=== PATIENT | female | born 1960 | race Caucasian/White ===

== ENCOUNTER 2016-12-04 11:43 | Emergency (ER) | payer OTHER ==
[~2016-12-04] VITALS: Ht 162.6 cm; Wt 68.0 kg
[~2016-12-04 11:43] MED LIST: HCT25T PO; HYDR-1231 PO; LOVA20TA2 PO; METO-272 PO; OMEP20CA6 PO; ONDA-42 SL; [UNRECOGNIZED DRUG - CODE] PO
--- NOTE | 2016-12-04 13:10 | ED EENT ---
History of Present Illness General Chief Complaint: Eye Problems Stated Complaint: FOREIGN SUBSTANCE IN R EYE Nursing Triage Note: AMB TO ROOM REPORTS WAS PUTTING ON NAILS AND AFTER SHE WAS DONE R EYE STARTED TO BURN. UNSURE IF SHE MAY OF TOUCHED EYE WITH HER HAND. MAY OF GOT SOME GLUE IN EYE. Source: patient, spouse Exam Limitations: no limitations History of Present Illness Time seen by provider: 11:30 Initial Comments 56 yo female patient presents to the ED with c/o possibly getting finger nail glue (Kiss adhesive) in her rt eye. Patient states after she was done putting the nails on, she began having rt eye burning. She has been rubbing the eye. Location Injury Occurred: home Timing/Duration: abrupt Location: eye (R) Prearrival Treatment: flushing eyes, other (Visine) Presenting Symptoms/Injuries: right eye pain Modifying Factors: Worse With Other (worse with rubbing the eye) Allergies and Home Medications Allergies Coded Allergies: No Known Drug Allergies (Unverified , 10/14/10) Home Medications Calcium Carbonate 1,000 Mg Tab.chew 1,000 MG PO (Reported) Hydrochlorothiazide 25 Mg Tab 25 MG PO DAILY (Reported) Hydrocodone Bit/Acetaminophen 1 Tab Tablet #10 1 TAB PO Q6H PRN PRN PAIN Prescribed by: GARRET CASTILLO on 12/18/14 1237 Lovastatin 20 Mg Tablet 1 EACH PO DAILY WITH SUPPER (Reported) Metoprolol Succinate 50 Mg Tab.sr.24h 50 MG PO DAILY (Reported) Ondansetron Hcl 4 Mg Tab #10 4 MG SL Q4H PRN PRN NAUSEA/VOMITING FOR NAUSEA AND VOMITING Prescribed by: GARRET CASTILLO on 12/18/14 1237 Review of Systems Constitutional: no symptoms reported Eyes: See HPI Blurred Vision Foreign Body Sensation Inflammation PainDenies Photophobia Ears: No Symptoms Reported Nose: no symptoms reported Mouth: no symptoms reported Throat: no symptoms reported Skin: no symptoms reported Neurological: No Symptoms Reported All Other Systems Reviewed Negative Unless Noted: Yes (Negative excepted noted.) Past Zvfdgis-Ifsmof-Emuvzo Hx Patient Social History Recent Foreign Travel: No Contact w/Someone Who Travel: No Recent Infectious Disease Expo: No Recent Hopitalizations: No Immunizations Up To Date Date of Influenza Vaccine: Sep 27, 2014 Surgeries HX Surgeries: Yes (OVARIAN CYST, DISCECTOMY) Surgeries: Appendectomy Respiratory Hx Respiratory Disorders: No Cardiovascular Hx Cardiac Disorders: Yes Cardiac Disorders: Hypertension Neurological Hx Neurological Disorders: No Reproductive System Female Reproductive Disorders: Ovarian Cyst Gastrointestinal Hx Gastrointestinal Disorders: Yes Gastrointestinal Disorders: Gastroesophageal Reflux Musculoskeletal Hx Musculoskeletal Disorders: No Endocrine Hx Endocrine Disorders: No Reviewed Nursing Assessment Reviewed/Agree w Nursing PMH: Yes Family Medical History Significant Family History: No Pertinent Family Hx Physical Exam Vital Signs Vital Sign - Last 12Hours 12/04/16 12/04/16 12:23 13:48 Temp 97.3 Pulse 74 Resp 18 Pulse Ox 96 O2 Delivery Room Air General Appearance: WD/WN no apparent distress Eyes: right eye conjunctival inflammation, right eye corneal abrasion, right eye lid inflammation ((consistent with patient rubbing the eye)), left eye normal inspection, bilateral eye EOMI, bilateral eye PERRL Ears: bilateral ear auricle normal Nose: normal inspection Mouth/Throat: normal mouth inspection pharynx normal Neck: supple normal inspection Neurologic/Psychiatric: alert normal mood/affect oriented x 3 Skin: normal color warm/dry Progress/Results/Core Measures Results/Orders My Orders Orders-SARAY LEMA Gentamicin 0.3% Ophth Solution (Garamyci (12/04/16 13:30) Tetracaine 0.5% Ophth Soln (Tetracaine 0 (12/04/16 13:30) Fluorescein Strips (Hhdpx-I-Jwwkau) (12/04/16 13:30) Balanced Salt Irrigation Soln (Bss Irrig (12/04/16 13:30) Rx-Gentamicin Ophth Soln (Rx-Gentamicin (12/04/16 13:33) Medications Given in ED Current Medications Medications Dose Ordered Sig/Edwige Route Start Time Stop Time Status Last Admin Dose Admin Balanced Salt Solution 15 ml ONCE ONCE IR 12/04/16 13:30 12/04/16 13:31 DC 12/04/16 13:42 15 ML Fluorescein Sodium 1 mg ONCE ONCE OU 12/04/16 13:30 12/04/16 13:31 DC 12/04/16 13:42 1 MG Tetracaine HCl 1 ml ONCE ONCE OU 12/04/16 13:30 12/04/16 13:31 DC 12/04/16 13:42 1 ML Vital Signs/I&O Vital Sign - Last 12Hours 12/04/16 12/04/16 12:23 13:48 Temp 97.3 Pulse 74 74 Resp 18 18 B/P Pulse Ox 96 96 O2 Delivery Room Air Departure Communication Progress Notes CND material safety data sheet reviewed for the fingernail glue. Effects of exposure to the eyes include: eye irritation, redness, itching, and watering. Recommendations for eye exposure include flushing the eye with cool water for at least 15 minutes and/or crying. patient states she did irrigate the eye at home. 2 drops of tetracaine ophth solution placed in the rt eye. 2 drops repeated after 10 minutes. fluorescein stain applied. patient noted to have fluorescein uptake medially consistent with corneal abrasion. Plan for discharge to home. Patient given gentamicin ophthalmic solution. Patient instructed to follow-up with the shingle sawyer of her choice as an outpatient for a recheck this week. All return precautions were discussed with the patient as described in the discharge instructions of this report. Patient voices understanding and agrees with the treatment plan. Impression Impression: Primary Impression: Chemical exposure of eye Additional Impression: Corneal abrasion Qualified Code: S05.01XA - Injury of conjunctiva and corneal abrasion without foreign body, right eye, initial encounter Disposition: HOME, SELF-CARE Condition: Improved Departure-Patient Inst. Decision time for Depature: 13:25 Referrals: GILLES FERREIRA OD, SHANE R OD SULLIVAN, WILLIAM J DO (PCP/Family) Primary Care Physician Patient Instructions: Corneal Abrasion (DC), Chemical Eye Injury (DC) Add. Discharge Instructions: All discharge instructions reviewed with patient and/or family. Voiced understanding. Medications as instructed. Tylenol [id number] as directed for pain. Ibuprofen 800 mg by mouth every 8 hours as needed for pain. Cool compresses as needed. Follow-up with the shingle sawyer of your choice for recheck this week, call for appointment time. Return to the emergency department for worsened pain, changes in vision, drainage, fever, headache, dizziness, or any other concerns. Images Eye 1 - Abrasion, Dye uptake (fluorescein) SARAY LEMA Dec 04, 2016 13:10
[2016-12-04] MEDS ORDERED: FLUORESCEIN (FLUOR-I-STRIPS) 1 MG STRP OU ONE (13:30)
[2016-12-04] MEDS ORDERED: BSS 15 ML IR ONE (13:30)
[2016-12-04] MEDS ORDERED: GENTAMICIN 0.3% OPHTH SOLN 5 ML OP SCH (13:30)
[2016-12-04] MEDS ORDERED: TETRACAINE 0.5% OPHTH SOLN 15 ML BTL OU ONE (13:30)
[2016-12-04] MEDS ORDERED: RX-GENTAMICIN SULFATE 0.3% OP 5 ML BTL OD STA (13:33)
[2016-12-04 13:48] VITALS: BP 117/65
== END 2016-12-04 13:41 | disposition home or self-care (01) ==
LOC: EDUNIT# 11:43 → ER 11:44
DX: S05.01XA Injury of conjunctiva and corneal abrasion without foreign body, right eye, initial encounter (principal); Z77.098 Contact with and (suspected) exposure to other hazardous, chiefly nonmedicinal, chemicals; X58.XXXA Exposure to other specified factors, initial encounter; Y92.009 Unspecified place in unspecified non-institutional (private) residence as the place of occurrence of the external cause; Y93.E8 Activity, other personal hygiene; Y99.8 Other external cause status
CPT/HCPCS: 99283

== ENCOUNTER 2021-09-25 14:32 | Emergency (ER) | payer BC ==
[~2021-09-25] VITALS: Ht 162.5 cm; Wt 68.0 kg
[2021-09-25] MEDS ORDERED: ASPIRIN 81 MG CHEW (CHILDREN'S ASA) PO ONE (14:45)
[2021-09-25] MEDS ORDERED: morphine INJ 10 MG/ML 1ML (SYR OR VIAL) IVP STA (14:53)
[2021-09-25 14:55] LABS: BASOPHILS # (AUTO) 0.1 10^3/uL (0.0-0.1); BASOPHILS % (AUTO) 1 % (0-10); EOSINOPHILS # (AUTO) 0.2 10^3/uL (0.0-0.3); EOSINOPHILS % (AUTO) 3 % (0-10); HEMATOCRIT 40 % (35-52); HEMOGLOBIN 13.6 g/dL (11.5-16.0); LYMPHOCYTES # (AUTO) 2.5 X 10^3 (1.0-4.0); LYMPHOCYTES % (AUTO) 33 % (12-44); MEAN CORPUSCULAR HEMOGLOBIN 29 pg (25-34); MEAN CORPUSCULAR HGB CONC 34 g/dL (32-36); MEAN CORPUSCULAR VOLUME 86 fL (80-99); MEAN PLATELET VOLUME 8.5 fL (9.0-12.2); MONOCYTES # (AUTO) 0.5 X 10^3 (0.0-1.0); MONOCYTES % (AUTO) 7 % (0-12); NEUTROPHILS # (AUTO) 4.3 X 10^3 (1.8-7.8); NEUTROPHILS % (AUTO) 57 % (42-75); PLATELET COUNT 288 10^3/uL (130-400); WHITE BLOOD COUNT 7.5 10^3/uL (4.3-11.0)
--- NOTE | 2021-09-25 15:03 | ED Chest Pain ---
General Chief Complaint: Chest Pain Stated Complaint: CHEST/BACK PAIN SOA Nursing Triage Note: AMB TO ROOM WITH . 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 WITH RADIATION TO BACK. HAS BEEN TOLD SHE HAS A POLYP ON HER GALLBALDDER. PAIN BETTER ON ADMIT TO ED. Source: patient Exam Limitations: no limitations History of Present Illness Date Seen by Provider: Sep 25, 2021 Time Seen by Provider: 14:54 Initial Comments This is a 60-year-old female who presented to the ER with complaints of mid ep igastric abdominal pain mid sternal chest pain that radiated into her back and to her right side that started approximately 1 to 2 hours prior to arrival.She does have significant cardiac history with hypertension, hyperlipidemia, type 2 diabetes. She has history of GERD, and "gallbladder polyps". Pain is intermittent and stabbing. Took 2 Tums prior to arrival. States she is unsure if this is helping as the pain will come and go. Upon arrival she has no pain. Reports no recent illness, no fever, chills, has chronic cough which is unchanged from her baseline, increasing shortness of breath over the past couple weeks, no dysuria or hematuria. Allergies and Home Medications Allergies Coded Allergies: No Known Drug Allergies (Unverified , 10/14/10) Patient Home Medication List Calcium Carbonate (Antacid) 1,000 Mg Tab.chew, 1,000 MG PO, (Reported) Entered as Reported by: ALYSIA ALSTON on 12/18/14 1033 Hydrochlorothiazide (Hctz) 25 Mg Tab, 25 MG PO DAILY, (Reported) Entered as Reported by: SE PARIS on 04/28/14 1522 Hydrocodone Bit/Acetaminophen (Hydrocodone-Apap 5-325 Tablet) 1 Tab Tablet, 1 TAB PO Q6H PRN for PAIN Prescribed by: GARRET CASTILLO on 12/18/14 1237 Lovastatin (Lovastatin 20 Mg) 20 Mg Tablet, 1 EACH PO DAILY WITH SUPPER, (Reported) Entered as Reported by: SE PARIS on 04/28/14 1522 Metoprolol Succinate (Metoprolol Succinate) 50 Mg Tab.sr.24h, 50 MG PO DAILY, (Reported) Entered as Reported by: SE PARIS on 04/28/14 1522 Ondansetron Hcl (Zofran Oral Dissolve) 4 Mg Tab, 4 MG SL Q4H PRN for NAUSEA/VOMITING Prescribed by: GARRET CASTILLO on 12/18/14 1237 Past Bthrtpa-Lswypp-Jxfzmp Hx Past Medical History Appendectomy Hypertension Female Reproductive Disorders: Ovarian Cyst Gastroesophageal Reflux Family Medical History No Pertinent Family Hx Physical Exam Vital Signs Vital Signs - First Documented 09/25/21 14:36 Temp 36.0 Pulse 90 Resp 18 B/P (MAP) 135/82 (99) Pulse Ox 98 O2 Delivery Room Air Capillary Refill : Less Than 3 Seconds Height, Weight, BMI Height: 5'4" Weight: 150lbs. oz. 68.265270cg; 25.00 BMI Method:Stated Progress/Results/Core Measures Results/Orders Lab Results Laboratory Tests Test 09/25/21 14:46 Range/Units White Blood Count 7.5 4.3-11.0 10^3/uL Red Blood Count 4.68 3.80-5.11 10^6/uL Hemoglobin 13.6 11.5-16.0 g/dL Hematocrit 40 35-52 % Mean Corpuscular Volume 86 80-99 fL Mean Corpuscular Hemoglobin 29 25-34 pg Mean Corpuscular Hemoglobin Concent 34 32-36 g/dL Red Cell Distribution Width 13.0 10.0-14.5 % Platelet Count 288 130-400 10^3/uL Mean Platelet Volume 8.5 L 9.0-12.2 fL Immature Granulocyte % (Auto) 0 % Neutrophils (%) (Auto) 57 42-75 % Lymphocytes (%) (Auto) 33 12-44 % Monocytes (%) (Auto) 7 0-12 % Eosinophils (%) (Auto) 3 0-10 % Basophils (%) (Auto) 1 0-10 % Neutrophils # (Auto) 4.3 1.8-7.8 X 10^3 Lymphocytes # (Auto) 2.5 1.0-4.0 X 10^3 Monocytes # (Auto) 0.5 0.0-1.0 X 10^3 Eosinophils # (Auto) 0.2 0.0-0.3 10^3/uL Basophils # (Auto) 0.1 0.0-0.1 10^3/uL Immature Granulocyte # (Auto) 0.0 0.0-0.1 10^3/uL Prothrombin Time 13.1 12.2-14.7 SEC INR Comment 1.0 0.8-1.4 Activated Partial Thromboplast Time 30 24-35 SEC D-Dimer 0.77 H 0.00-0.49 UG/ML Sodium Level 134 L 135-145 MMOL/L Potassium Level 3.9 3.6-5.0 MMOL/L Chloride Level 101 98-107 MMOL/L Carbon Dioxide Level 21 21-32 MMOL/L Anion Gap 12 5-14 MMOL/L Blood Urea Nitrogen 11 7-18 MG/DL Creatinine 0.75 0.60-1.30 MG/DL Estimat Glomerular Filtration Rate 79 BUN/Creatinine Ratio 15 Glucose Level 140 H 70-105 MG/DL Calcium Level 9.1 8.5-10.1 MG/DL Corrected Calcium 9.0 8.5-10.1 MG/DL Magnesium Level 1.8 1.6-2.4 MG/DL Total Bilirubin 0.3 0.1-1.0 MG/DL Aspartate Amino Transf (AST/SGOT) 18 5-34 U/L Alanine Aminotransferase (ALT/SGPT) 28 0-55 U/L Alkaline Phosphatase 88 40-136 U/L Myoglobin 43.0 10.0-92.0 NG/ML Troponin I < 0.028 <0.028 NG/ML B-Type Natriuretic Peptide < 10.0 <100.0 PG/ML Total Protein 6.9 6.4-8.2 GM/DL Albumin 4.1 3.2-4.5 GM/DL My Orders Orders - JOSÉ RENAE TUNNEL HEADING INSPECTOR Cbc With Automated Diff (09/25/21 14:36) Magnesium (09/25/21 14:36) Chest 1 View, Ap/Pa Only (09/25/21 14:36) Ekg Tracing (09/25/21 14:36) Comprehensive Metabolic Panel (09/25/21 14:36) Myoglobin Serum (09/25/21 14:36) Protime With Inr (09/25/21 14:36) Partial Thromboplastin Time (09/25/21 14:36) O2 (09/25/21 14:36) Monitor-Rhythm Ecg Trace Only (09/25/21 14:36) Ed Iv/Invasive Line Start (09/25/21 14:36) BNP (09/25/21 14:36) Fibrin Degradation Products (09/25/21 14:36) Troponin I (09/25/21 14:36) Aspirin Chewable Tablet (Baby Aspirin Ch (09/25/21 14:45) Morphine Injection (Morphine Injection (09/25/21 14:53) Dicyclomine Injection (Bentyl Injection) (09/25/21 15:45) Ct Jody Chest/Noang Abd-Pelv W (09/25/21 14:53) Medications Given in ED Current Medications Medications Dose Ordered Sig/Edwige Route Start Time Stop Time Status Last Admin Dose Admin Aspirin 324 mg ONCE ONCE PO 09/25/21 14:45 09/25/21 14:46 DC 09/25/21 15:01 324 MG Dicyclomine HCl 10 mg ONCE ONCE IM 09/25/21 15:45 09/25/21 15:46 DC 09/25/21 15:36 10 MG Iohexol 100 ml ONCE ONCE IV 09/25/21 15:15 09/25/21 15:16 DC 09/25/21 15:54 80 ML Vital Signs/I&O 09/25/21 14:36 Temp 36.0 Pulse 90 Resp 18 B/P (MAP) 135/82 (99) Pulse Ox 98 O2 Delivery Room Air Blood Pressure Mean: 99 Progress Progress Note : Progress Note Labs and imaging reviewed with the patient. She had significant improvement after the dicyclomine injection. This likely represents colic From her gallbladder. Discussed repeating her cardiac enzymes as her initials were negative however her symptom onset was within 1 to 2 hours of the drawl. Patient states that she does not want to wait in the ER for 3-hour repeat on her cardiac markers. Reviewed risk of not repeating labs which included possible Initial ECG Impression Date: Sep 25, 2021 Initial ECG Impression Time: 14:40 Diagnostic Imaging Diagonstic Imaging: Xray Plain Films/CT/US/NM/MRI: chest Comments [facility], [place] NAME: ROMIE HOWARD [facility] REC#: [id number] PT STATUS: REG ER : 1960 PHYSICIAN: JOSÉ RENAE TUNNEL HEADING INSPECTOR ADMIT DATE: 09/25/21/ER Draft Date of Exam:09/25/21 CHEST 1 VIEW, AP/PA ONLY Clinical indication: Patient with chest pain. Exam: Portable chest x-ray upright view. Comparisons: Chest x-ray dated 10/14/2010. Findings: Lungs/pleura: Lungs are clear. There is no pneumothorax. There is no pleural effusion. Mediastinum: Unremarkable. Pulmonary vasculature: Unremarkable. Heart: Unremarkable. Bones/extrathoracic soft tissue: There are degenerative spurs involving the thoracic spine. Impression: There is no radiographic evidence of acute cardiopulmonary process. Dictated on workstation # [id number] Dict: 09/25/21 1600 Trans: 09/25/21 1604 [facility] [id number] Interpreted by: INNA MOORE MD Electronically signed by: Reviewed: Reviewed by Me Departure Impression Primary Impression: Gallbladder colic Disposition: 01 HOME, SELF-CARE Condition: Improved Departure-Patient Inst. Decision time for Depature: 16:45 Referrals: SARA SANTIAGO DO (PCP/Family) Primary Care Physician Patient Instructions: Gallbladder Diet, Gallstones ED Add. Discharge Instructions: Plan: 1. Take Dicyclomine every 6 hours as needed for pain. 2. Avoid fatty, greasy foods as this may worsen your symptoms. 3. Follow up with Dr. Santiago next week to schedule gallbladder ultrasound. 4. Return to ER if you have any chest pain, new, concerning, or worsening symptoms. All discharge instructions reviewed with patient and/or family. Voiced understanding. Scripts Dicyclomine HCl (Dicyclomine HCl) 20 Mg Tablet 20 MG PO Q6H, #30 TAB 0 Refills Prov: JOSÉ RENAE TUNNEL HEADING INSPECTOR 09/25/21 JOSÉ RENAE TUNNEL HEADING INSPECTOR Sep 25, 2021 15:03
[2021-09-25 15:04] LABS: ALBUMIN 4.1 GM/DL (3.2-4.5); POTASSIUM 3.9 MMOL/L (3.6-5.0)
[2021-09-25 15:06] LABS: CALCIUM 9.1 MG/DL (8.5-10.1)
[2021-09-25 15:07] LABS: TOTAL PROTEIN 6.9 GM/DL (6.4-8.2)
[2021-09-25 15:09] LABS: BILIRUBIN,TOTAL 0.3 MG/DL (0.1-1.0)
[2021-09-25 15:10] LABS: CREATININE SERUM 0.75 MG/DL (0.60-1.30); PROTHROMBIN TIME PATIENT 13.1 SEC (12.2-14.7)
[2021-09-25 15:13] LABS: MAGNESIUM 1.8 MG/DL (1.6-2.4)
[2021-09-25] MEDS ORDERED: IOHEXOL 350 MG/ML 100 ML (OMNIPAQUE 350) VIAL IV ONE (15:15)
[2021-09-25] MEDS ORDERED: NS 100 ML (IVPB) BAG IV ONE (15:15)
[2021-09-25] MEDS ORDERED: HOLD METFORMIN - RECEIVED CONTRAST 20 ML VIAL IV SCH (15:15)
[2021-09-25] MEDS ORDERED: DICYCLOMINE 10 MG/ML (BENTYL) 2 ML AMP IM ONE (15:45)
--- NOTE | 2021-09-25 16:04 | Diagnostic Imaging Report ---
Clinical indication: Patient with chest pain. Exam: Portable chest x-ray upright view. Comparisons: Chest x-ray dated 10/14/2010. Findings: Lungs/pleura: Lungs are clear. There is no pneumothorax. There is no pleural effusion. Mediastinum: Unremarkable. Pulmonary vasculature: Unremarkable. Heart: Unremarkable. Bones/extrathoracic soft tissue: There are degenerative spurs involving the thoracic spine. Impression: There is no radiographic evidence of acute cardiopulmonary process. Dictated by: Dictated on workstation # [id number]
--- NOTE | 2021-09-25 16:23 | Diagnostic Imaging Report ---
Clinical indication: Patient with right upper quadrant abdominal pain. Exam: CT angiogram of the chest, abdomen and pelvis performed with 80 cc Omnipaque 350 IV contrast. Coronal and oblique MIP images of the vasculature were created to better evaluate anatomy. Auto Exposure Controls were utilized during the CT exam to meet ALARA standards for radiation dose reduction. Comparison: Chest x-ray dated 12/18/2014. Findings: CTA chest: There is a 7 mm calcified granuloma in the anterior aspect of the right upper lobe. There is a punctate calcification in the medial right lower lung base. Lungs are otherwise clear. There is no pleural effusion or pneumothorax. There is minimal paraseptal cystic changes seen in left lung apex. The pulmonary bronchi are unremarkable. The visualized portion of the thyroid gland is unremarkable. There is no mediastinal or hilar lymphadenopathy. There is no significant axillary lymphadenopathy. The thoracic aorta shows no aneurysmal dilation or dissection. Bilateral pulmonary arteries are patent. There is no evidence of pulmonary embolism. The extrathoracic soft tissue is unremarkable. There are hypertrophic spurs involving the thoracic spine. CT abdomen and pelvis: The abdominal aorta, bilateral common iliac arteries and internal and external bilateral iliac arteries are patent with no aneurysmal dilation or dissection. The celiac artery, SMA and bilateral renal arteries are patent without significant stenosis. There is a 6 mm cyst involving the right lobe of the liver near the dome. Otherwise, liver is unremarkable. The spleen, pancreas, adrenal glands and kidneys are unremarkable. Likely subcentimeter cyst involving the left kidney. Otherwise, both kidneys are unremarkable with no hydronephrosis, stone or enhancing mass. The bladder is partially fluid-filled with no gross abnormality. The uterus is surgically absent. The bilateral adnexal regions are unremarkable. There is no intra-abdominal free air or free fluid. There is diverticulosis involving the sigmoid colon and descending colon with no evidence of diverticulitis. There is no intestinal obstruction. The stomach and small bowel are unremarkable. The appendix is not visualized. There is no inflammation or fluid near the pericecal region. There is no lymphadenopathy. The extra-abdominal and extra-pelvis soft tissue structures are unremarkable. There are degenerative spurs involving lumbar spine facet arthropathy. There are degenerative spurs involving both hips. IMPRESSION: CTA chest: 1: There is no evidence of pulmonary embolism, thoracic aortic aneurysm or dissection. 2: Right lung calcified granuloma. Otherwise, lungs are clear. There is no lymphadenopathy. CT abdomen and pelvis: 1: The appendix is not visualized on this exam. There is no inflammation in the pericecal region. 2: Otherwise, there is no CT evidence of acute abdominal or pelvic process. There is no abdominal aortic aneurysm or dissection. Visualized vascular structures are patent. 3: There is diverticulosis with no CT evidence of diverticulitis. 4: There is diffuse fatty infiltration of the liver. Dictated by: Dictated on workstation # [id number]
[2021-09-25] MEDS ORDERED: DICY20TA10 PO (17:05)
[2021-09-25 17:15] VITALS: BP 146/77
== END 2021-09-25 17:15 | disposition home or self-care (01) ==
LOC: EDUNIT# 14:32 → ER 14:34
DX: K80.20 Calculus of gallbladder without cholecystitis without obstruction (principal); I10 Essential (primary) hypertension; E11.9 Type 2 diabetes mellitus without complications; E78.5 Hyperlipidemia, unspecified; Z79.899 Other long term (current) drug therapy
CPT/HCPCS: 36415; 71045; 71275; 74177; 80053; 83735; 83874; 83880; 84484; 85025; 85379; 85610; 85730; 93005; 93041

== ENCOUNTER → 2021-10-05 | Outpatient (CLI) | payer BC ==
[~2021-10-05] MED LIST changes: +DICY20TA10 PO
--- NOTE | 2021-10-05 09:37 | Diagnostic Imaging Report ---
EXAMINATION: US Abdomen limited. TECHNIQUE: Multiple real-time grayscale images were obtained over the right upper quadrant in various projections. REASON FOR EXAM: Right upper quadrant pain. COMPARISON: 12/18/2014. 09/25/2021. FINDINGS: The liver is normal in size and shape. The liver echogenicity is increased, consistent with hepatic steatosis. There are no focal lesions. No intrahepatic biliary dilatation is present. The common bile duct is not dilated and measures 5 mm. The main portal vein is hepatopedal. No ascites is seen in the upper abdomen. There is no evidence of cholelithiasis, gallbladder wall thickening or pericholecystic fluid. Poorly visualized small echogenic focus is seen within the gallbladder. Sonographic Delatorre's sign is negative. The visualized portion of the head of the pancreas are within normal limits. The body and tail of the pancreas are not well visualized due to overlying bowel gas. The visualized portions of the IVC and aorta appear normal. The right kidney measures approximately 10.3 cm in length and has a normal appearance. IMPRESSION: 1. No cholelithiasis or acute cholecystitis. 2. Hepatic steatosis. No evidence of ascites. 3. Poorly visualized small echogenic focus within the gallbladder lumen. This may represent a previously visualized suspected polyp. Dictated by: Dictated on workstation # [id number]
== END ==
LOC: RAD 08:00
PROVIDERS: ATTEND Nurse Practitioner Family
DX: K76.0 Fatty (change of) liver, not elsewhere classified (principal)
CPT/HCPCS: 76705

== ENCOUNTER → 2021-11-29 | Outpatient (CLI) | payer BC ==
[~2021-11-29] MED LIST changes: +DICY20TA PO; -DICY20TA10 PO; +HYDR-3817 PO; +LISI1TAB48 PO; +METF-397 PO; +OMEP10CA5 PO
--- NOTE | 2021-11-29 11:25 | Diagnostic Imaging Report ---
PROCEDURE: US left lower extremity venous. TECHNIQUE: Multiple Real-time grayscale images were obtained over the left lower extremity in various projections. Additional duplex Doppler and color Doppler images were also obtained. INDICATION: Left leg pain, history of DVT. FINDINGS: There is no evidence of left lower extremity DVT. The left lower extremity deep venous system shows normal compressibility with normal response to augmentation and Valsalva. No fluid collection or mass is detected. IMPRESSION: No evidence of left lower extremity DVT. Dictated by: Dictated on workstation # [id number]
== END ==
LOC: RAD 10:00
PROVIDERS: ATTEND Nurse Practitioner Family
DX: M79.605 Pain in left leg (principal); Z86.718 Personal history of other venous thrombosis and embolism

== ENCOUNTER 2021-11-30 05:33 | Outpatient (CLI) | payer BC ==
[~2021-11-30] VITALS: Ht 162.6 cm; Wt 67.7 kg
[~2021-11-30 05:33] MED LIST changes: -HYDR-3817 PO; -LISI1TAB48 PO; -METF-397 PO; -OMEP10CA5 PO
[2021-11-30] MEDS ORDERED: OMEP10CA5 PO (10:57)
[2021-11-30] MEDS ORDERED: LISI1TAB48 PO (10:57)
[2021-11-30] MEDS ORDERED: METF-397 PO (10:57)
== END 2021-11-30 11:54 | disposition home or self-care (01) ==
LOC: PREOP 05:33
PROVIDERS: ATTEND Surgery
DX: Z01.818 Encounter for other preprocedural examination (principal)

== ENCOUNTER 2021-12-02 10:43 | Day surgery (SDC) | payer BC ==
[~2021-12-02] VITALS: Ht 162 cm; Wt 67.7 kg
[2021-12-02] VITALS (11 sets, daily range): BP systolic 120–159; BP diastolic 62–86
[~2021-12-02 10:43] MED LIST changes: +LISI1TAB48 PO; +METF-397 PO; +OMEP10CA5 PO
[2021-12-02] MEDS ORDERED: HYDR-3817 PO (10:53)
--- NOTE | 2021-12-02 10:54 | Discharge Inst-Surgical ---
D/C Lap Instructions-KIDO Reconcile Patient Problems Problems Reviewed?: Yes New, Converted, or Re-Newed RX: RX on Chart Follow Up Appt in 2 weeks Activity as tolerated No driving for 24 hours No driving while on pain medications Incentive Spirometry use every 2 hours while awake Regular Diet Symptoms to Report: Fever over 101 degree F, Nausea/Vomiting Infection Signs and Symptoms to report: Increased redness, Foul odor of wound, Increased drainage Bathing instructions: May shower Operative Area Clean/Dry; Keep incision clean/dry If any problems/questions: Contact your physician or go to Emergency Room EDWARD LAUGHLIN APRN Dec 02, 2021 10:54
[2021-12-02] MEDS ORDERED: ONDANSETRON 4 MG/2 ML (SDV) Z0FRAN IVP PRN ×2 (11:00→14:30)
[2021-12-02] MEDS ORDERED: HYDROcodone/APAP 5 MG/325 MG (LORTAB) TAB PO ONE (11:00)
[2021-12-02] MEDS ORDERED: ACETAMINOPHEN 325 MG TABLET PO PRN (11:00)
[2021-12-02] MEDS ORDERED: morphine INJ 10 MG/ML 1ML (SYR OR VIAL) IVP PRN (11:00)
[2021-12-02] MEDS ORDERED: ceFAZolin INJECTION 1,000 MG ONE (11:15)
[2021-12-02] MEDS: LACTATED RINGERS 1,000 ML IV PRN ×2 (11:23→14:18)
[2021-12-02] MEDS ORDERED: ceFAZolin INJECTION 1,000 MG VIAL IV ONE (11:30)
--- NOTE | 2021-12-02 11:39 | Progress Note-Pre Operative ---
Pre-Operative Progress Note H&P Reviewed The H&P was reviewed, patient examined and no changes noted. Date Seen by Provider: Dec 02, 2021 Time Seen by Provider: 11:00 Date H&P Reviewed: Dec 02, 2021 Time H&P Reviewed: 10:55 Pre-Operative Diagnosis: Symptomatic gallbladder polyp EDWARD LAUGHLIN APRN Dec 02, 2021 11:39
[2021-12-02] MEDS ORDERED: LIDOCAINE/EPI 1%-1:200,000 (XYLOCAINE) 30 ML VIAL ONE (11:43)
[2021-12-02] MEDS ORDERED: LIDOCAINE PF 2% 5 ML (XYLOCAINE) VIAL ONE (12:27)
[2021-12-02] MEDS ORDERED: ROCURONIUM 10 MG/ML 5 ML SYRINGE IV ONE (12:27)
[2021-12-02] MEDS ORDERED: NEOSTIGMINE 3 MG/3 ML VIAL ONE (12:27)
[2021-12-02] MEDS ORDERED: fentaNYL INJ 100 MCG/2 ML AMP ONE (12:27)
[2021-12-02] MEDS ORDERED: GLYCOPYRROLATE 0.2 MG/ML (ROBINUL) 2 ML VIAL ONE (12:27)
[2021-12-02] MEDS ORDERED: ONDANSETRON 4 MG/2 ML (SDV) Z0FRAN ONE (12:27)
[2021-12-02] MEDS ORDERED: MIDAZOLAM 2 MG/2 ML (VERSED) VIAL ONE (12:27)
[2021-12-02] MEDS ORDERED: proPOfol 200 MG/20 ML (DIPRIVAN) VIAL IV ONE (12:27)
[2021-12-02] MEDS ORDERED: ONDANSETRON 4 MG/2 ML (SDV) Z0FRAN IV ONE (13:15)
[2021-12-02] MEDS ORDERED: FAMOTIDINE 20MG/2ML IV (PEPCID) IV ONE (13:15)
[2021-12-02] MEDS ORDERED: KETOROLAC 30 MG/ML VIAL ONE (14:15)
[2021-12-02] MEDS ORDERED: SEVOFLURANE (ULTANE) 15 ML INHAL SOLN ONE (14:17)
--- NOTE | 2021-12-02 14:20 | Progress Note-Post Operative ---
Post-Operative Progess Note Surgeon (s)/Groutman (s) Surgeon ERIN PATEL MD Groutman: binh rogers CONTRACT MANAGEMENT SPECIALIST Pre-Operative Diagnosis Symptomatic gallbladder polyp Post-Operative Diagnosis chronic calculous cholecystitis. Procedure & Operative Findings Date of Procedure 12/02/21 Procedure Performed/Findings laparoscopic cholecystectomy Anesthesia Type get Estimated Blood Loss Estimated blood loss (mL): minimal Specimens/Packing Specimens Removed gallbladder ERIN PATEL MD Dec 02, 2021 14:20
[2021-12-02] MEDS ORDERED: HYDROmorphone 2 MG/ML VIAL (DILAUDID) IV ONE (14:30)
--- NOTE | 2021-12-02 14:40 | Anesthesia-General Post-Op ---
General Patient Condition Mental Status/LOC: Same as Preop Cardiovascular: Satisfactory Nausea/Vomiting: Absent Respiratory: Satisfactory Pain: Controlled Complications: Absent Post Op Complications Complications None Follow Up Care/Instructions Patient Instructions None needed. Anesthesia/Patient Condition Patient Condition Patient is doing well, no complaints, stable vital signs, no apparent adverse anesthesia problems. No complications reported per nursing. D/C home per [facility] Criteria: Yes CHRISTINE MARINO CRNA Dec 02, 2021 14:40
[2021-12-02] MEDS ORDERED: HYDROmorphone 2 MG/ML VIAL (DILAUDID) ONE (14:50)
[2021-12-02] MEDS ORDERED: HYDROcodone/APAP 5 MG/325 MG (LORTAB) TAB ONE (15:20)
--- NOTE | 2021-12-14 18:04 | OPERATIVE REPORT ---
DATE OF SERVICE: 12/02/2021 ATTENDING BUTTON DECORATING MACHINE OPERATOR: Shani Santiago DNP. PREOPERATIVE DIAGNOSIS: Symptomatic chronic calculous cholecystitis. POSTOPERATIVE DIAGNOSIS: Symptomatic chronic calculous cholecystitis. PROCEDURE: Laparoscopic cholecystectomy. SURGEON: Erin Patel MD. DOG BEAUTICIAN: Tray Hicks APRN. ANESTHESIA: General endotracheal. ESTIMATED BLOOD LOSS: Minimal. FINDINGS: Same as postoperative diagnoses. DISPOSITION: The patient tolerated the procedure well. INDICATIONS: The patient is a 61-year-old female who has had issues with epigastric pain as well as a right upper abdominal quadrant pain. She states that she has had this issue on a mild or more intermittent basis for the past 5 years and was found to have a gallbladder polyp on radiologic workup. She continued with medical management; however, she had worsening symptoms including the pain as well as abdominal distention usually after eating meals. DESCRIPTION OF PROCEDURE: The patient was brought to the operating room, laid supine on the table. After adequate IV pain and sedative medications and general endotracheal intubation, the abdomen was prepped and draped in standard surgical fashion. A 0.5% Marcaine with epinephrine was used to anesthetize overlying skin in the left upper abdominal quadrant and a transverse skin incision made using a 15 blade. An 0 silk suture was applied to the medial aspect incision for retraction and a Veress needle inserted with a low opening pressure of 0 mmHg and the abdomen was then insufflated to 15 mmHg pressure. The Veress needle removed and a 5 mm XL trocar placed followed by a 5 mm 45-degree angle laparoscope visualizing the peritoneal cavity. A 4-quadrant abdominal exploration was performed. There was a slightly distended gallbladder, no gallbladder wall thickening. Under direct visualization, we then proceeded to place a supraumbilical 10 mm port after the skin and peritoneal lining were anesthetized using 0.5% Marcaine with epinephrine and a transverse skin incision made using a 15 blade. In a similar fashion, a right upper abdominal quadrant 5 mm port was placed. The patient was then placed in reverse Trendelenburg position as well as plane right side up, left side down. The fundus of the gallbladder was then retracted anteriorly and superiorly. The hepatoduodenal ligament was then dissected using a blunt dissection as well as electrocautery on hook instrument as well as a [place] dissector. The entire critical view of safety was identified including the triangle of Calot as well as the cystic duct and artery as the only two structures going into the gallbladder as well as the cystic plate behind the proximal gallbladder. A timeout was then taken and the cystic duct and artery were then clipped proximally, distally and cut with EndoShears. The gallbladder was then dissected off the liver bed using electrocautery and hook instrument with visualization of good hemostasis as well as no leaking ducts of Luschka. The gallbladder was removed through the 10 mm port site using an EndoCatch bag. The 10 mm port site fascia and peritoneum were then closed under direct visualization using a Delon-Brandon device and 0 Vicryl suture. The abdomen was then desufflated and remaining ports removed. All skin incisions were closed using 4-0 Monocryl running subcuticular sutures. Wounds were then cleaned and covered with Dermabond. The patient tolerated the procedure well. We will start IV normal pain medication as well as a clear liquid diet. When she is tolerating clears, has good pain control with oral pain medications, ambulating well, she may be discharged home where she will be instructed to do no heavy lifting or exertion for the next two weeks. Job ID: [id number] DocumentID: [id number] Dictated Date: 12/14/2021 12:26:25 Resident Physician In Radiology Date: 12/14/2021 18:03:30 Dictated By: ERIN PATEL MD
== END 2021-12-02 16:30 ==
LOC: SDC 10:43
PROVIDERS: ATTEND Surgery
DX: K80.10 Calculus of gallbladder with chronic cholecystitis without obstruction (principal); K21.9 Gastro-esophageal reflux disease without esophagitis; E11.40 Type 2 diabetes mellitus with diabetic neuropathy, unspecified; F17.210 Nicotine dependence, cigarettes, uncomplicated; I10 Essential (primary) hypertension; Z79.899 Other long term (current) drug therapy; Z79.84 Long term (current) use of oral hypoglycemic drugs
CPT/HCPCS: 82947; 87081; 88304

== ENCOUNTER 2022-11-25 13:12 | Emergency (ER) | payer BC ==
[~2022-11-25] VITALS: Ht 162.6 cm; Wt 68.9 kg
[~2022-11-25 13:12] MED LIST changes: +HYDR-3817 PO
[2022-11-25 13:34] LABS: CLARITY,URINE CLEAR; COLOR,URINE YELLOW; GLUCOSE, URINE (UA) NEGATIVE (NEGATIVE); KETONES,URINE NEGATIVE (NEGATIVE); NITRITE,URINE NEGATIVE (NEGATIVE); PROTEIN,URINE NEGATIVE (NEGATIVE)
[2022-11-25 13:35] LABS: BILIRUBIN,URINE NEGATIVE (NEGATIVE); LEUKOCYTE ESTERASE ,URINE NEGATIVE (NEGATIVE)
[2022-11-25 13:51] LABS: BACTERIA,URINE NEGATIVE /HPF; SQUAMOUS EPITHELIAL CELL,UR 0-2 /HPF
[2022-11-25] MEDS ORDERED: CYCLOBENZAPRINE 10 MG (FLEXERIL) TAB PO STA (14:07)
--- NOTE | 2022-11-25 14:14 | ED Back Pain ---
General Chief Complaint: Back Problems Stated Complaint: RIGHT SIDE BACK PAIN Nursing Triage Note: PT AMBULATE TO TRIAGE WITH C/O RIGHT SIDE BACK PAIN X2 HOURS. PT REPORTS SHE HAS HAD THIS PAIN BEFORE BUT IT WHEN AWAY. PT DENIES TAKING ANYTHING FOR PAIN. PT DENIES DIFFICULTY/PAIN WITH URINATION. History of Present Illness Date Seen by Provider: Nov 25, 2022 Time Seen by Provider: 13:25 Initial Comments 62-year-old female presents for right-sided low back pain. She has had this in the past and it normally improves with minimal treatment. She has not taken anything for pain. She denies any nausea, vomiting, diarrhea. Location: Paraspinous Muscles (right) Timing/Duration: 4-6 Hours Severity: Moderate Pain/Injury Location: Back Associated Symptoms: muscle spasms; No weakness, No numbness in legs/feet, No tingling in legs/feet, No sensory/motor loss; lower back pain; No loss of bladder control, No loss of bowel control Allergies and Home Medications Allergies Coded Allergies: Hzmopcf-FUK-FlX Reductase Inhibitor (Verified Allergy, Unknown, RASH, 12/02/21) Patient Home Medication List Home Medication List Reviewed: Yes Calcium Carbonate (Antacid) 1,000 Mg Tab.chew, 1,000 MG PO, (Reported) Entered as Reported by: ALYSIA ALSTON on 12/18/14 1033 Cyclobenzaprine HCl (Cyclobenzaprine HCl) 10 Mg Tablet, 10 MG PO Q8H PRN for SPASMS Prescribed by: VIDYA MARISCAL on 11/25/22 1551 Dicyclomine HCl (Dicyclomine HCl) 20 Mg Tablet, 20 MG PO Q6H Prescribed by: JOSÉ RENAE on 09/25/21 1705 Hydrocodone/Acetaminophen (Hydrocodone-Acetamin 7.5-325) 1 Each Tablet, 1 EACH PO Q4H PRN for PAIN-BREAKTHROUGH Prescribed by: EDWARD LAUGHLIN on 12/02/21 1053 Lisinopril/Hydrochlorothiazide (Lisinopril-Hctz 20-25 mg Tab) 1 Each Tablet, 1 EACH PO DAILY, (Reported) Entered as Reported by: YEMI GARCES on 11/30/21 1057 Metformin HCl (Metformin HCl) 500 Mg Tablet, 500 MG PO DAILY, (Reported) Entered as Reported by: YEMI GARCES on 11/30/21 1057 Metoprolol Succinate (Metoprolol Succinate) 50 Mg Tab.sr.24h, 50 MG PO HS, (Reported) Entered as Reported by: SE [place] on 04/28/14 1522 Omeprazole (Omeprazole) Unknown Strength Capsule.dr, Unknown Dose PO, (Reported) Entered as Reported by: YMEI GARCES on 11/30/21 1057 Tramadol HCl (Tramadol HCl) 50 Mg Tablet, 50 MG PO Q6H PRN for PAIN Prescribed by: VIDYA MARISCAL on 11/25/22 1552 Review of Systems Constitutional: no symptoms reported, see HPI Musculoskeletal: see HPI, back pain, muscle pain, muscle weakness All Other Systems Reviewed Negative Unless Noted: Yes Past Gbowimh-Bunuri-Eieaaf Hx Patient Social History Tobacco Use?: Yes Smoking Status: Heavy Tobacco Smoker Smokeless Tobacco Frequency: Never a User Use of E-Cig and/or Vaping dev: No Use of E-Cig and/or Vaping Rajinder: Never a User Substance use?: No Alcohol Use?: No Pt feels they are or have been: No Immunizations Up To Date First/Initial COVID19 Vaccinat: JANUARY 2021 Second COVID19 Vaccination Elbert: FEBRUARY 2021 Seasonal Allergies Seasonal Allergies: Yes Past Medical History Surgeries: Yes (OVARIAN CYST, DISCECTOMY) Appendectomy Respiratory: No Currently Using CPAP: No Currently Using BIPAP: No Cardiac: Yes High Cholesterol, Hypertension Neurological: No Female Reproductive Disorders: Ovarian Cyst Genitourinary: No Gastrointestinal: Yes Gastroesophageal Reflux, Gall Bladder Disease Musculoskeletal: No Chronic Back Pain Endocrine: No Diabetes, Non-Insulin dep HEENT: Yes (GLASSES) Cancer: No Psychosocial: No Integumentary: No Blood Disorders: No Family Medical History Reviewed Nursing Family Hx No Pertinent Family Hx Physical Exam Vital Signs Vital Signs - First Documented 11/25/22 11/25/22 13:19 14:18 Temp 36.5 Pulse 89 Resp 18 B/P (MAP) 152/74 (100) Pulse Ox 98 O2 Delivery Room Air Capillary Refill : Less Than 3 Seconds Height, Weight, BMI Height: 5'4" Weight: 150lbs. oz. 68.303440fb; 26.00 BMI Method:Stated General Appearance: WD/WN, Mild Distress (secondary to pain) Neck: Full Range of Motion, Normal Inspection, Non Tender, Supple Cardiovascular: Regular Rate, Rhythm, No Edema, No Murmur, Normal Peripheral Pulses Respiratory: Chest Non Tender, Lungs Clear, Normal Breath Sounds Gastrointestinal: Normal Bowel Sounds, Non Tender, Soft Back: Normal Inspection, No Vertebral Tenderness, Decreased Range of Motion (secondary to pain), Muscle Spasm (right upper lumbar); No Vertebral Tenderness; Other (Steady gait, can toe walk and heel walk. Power V/V L4-S1) Extremity: Normal Capillary Refill, Normal Inspection, Normal Range of Motion, Non Tender, No Calf Tenderness Neurologic/Psychiatric: Alert, Oriented x3, No Motor/Sensory Deficits, Normal Mood/Affect Skin: Normal Color, Warm/Dry Progress/Results/Core Measures Results/Orders Lab Results Laboratory Tests Test 11/25/22 13:26 Range/Units Urine Color YELLOW Urine Clarity CLEAR Urine pH 6.0 5-9 Urine Specific [place] 1.010 L 1.016-1.022 Urine Protein NEGATIVE NEGATIVE Urine Glucose (UA) NEGATIVE NEGATIVE Urine Ketones NEGATIVE NEGATIVE Urine Nitrite NEGATIVE NEGATIVE Urine Bilirubin NEGATIVE NEGATIVE Urine Urobilinogen 0.2 < = 1.0 MG/DL Urine Leukocyte Esterase NEGATIVE NEGATIVE Urine RBC (Auto) NEGATIVE NEGATIVE Urine RBC NONE /HPF Urine WBC NONE /HPF Urine Squamous Epithelial Cells 0-2 /HPF Urine Crystals NONE /LPF Urine Bacteria NEGATIVE /HPF Urine Casts NONE /LPF Urine Mucus NEGATIVE /LPF Urine Culture Indicated NO My Orders Orders - VIDYA MARISCAL Ua Culture If Indicated (11/25/22 13:20) Cyclobenzaprine Tablet (Flexeril Tablet) (11/25/22 14:07) Tramadol Tablet (Ultram Tablet) (11/25/22 14:07) Lumbar Spine - 2-3 Views (11/25/22 14:07) Vital Signs/I&O 11/25/22 11/25/22 11/25/22 13:19 14:18 15:54 Temp 36.5 Pulse 89 81 80 Resp 18 18 18 B/P (MAP) 152/74 (100) 145/87 (106) 138/87 Pulse Ox 98 94 O2 Delivery Room Air Room Air Room Air Blood Pressure Mean: 100 Progress Progress Note : Time: 13:25 Progress Note patient assessed, will obtain x-ray, Flexerile and Tramadol. 1420 No acute findings on x-ray. Patient reports minimal improvement but declined CT. 1500 d/c instructions and return precautions reviewed. All questions answered. Diagnostic Imaging Diagonstic Imaging: Xray Plain Films/CT/US/NM/MRI: other (l spine) Comments NAME: ROM[facility] REC#: [id number] PT STATUS: REG ER : 1960 PHYSICIAN: VIDYA MARISCAL ADMIT DATE: 11/25/22/ER Draft Date of Exam:11/25/22 LUMBAR SPINE - 2-3 VIEWS INDICATION: low back pain TECHNIQUE: AP, Lateral and Spot imaging of the lumbar spine CORRELATION STUDY: None FINDINGS: Mild straightening of normal lumbar lordosis. Lumbar vertebral body heights are maintained. Endplate lipping throughout the lumbar spine. Facet arthropathy L5-S1, L4-L5 and L3-L4 levels. More prominent disc space narrowing L5, S1, L4, L5 levels. There is a prominent vascular calcification abdominal aorta. SI joints appear unremarkable. IMPRESSION: No radiographic evidence for acute bony abnormality of the lumbar spine. Advanced lower lumbar spine degenerative change. Dictated on workstation # [id number] Dict: 11/25/22 1454 Trans: 11/25/22 1459 CV [id number] Interpreted by: DWAYNE FOX DO Electronically signed by: Reviewed: Reviewed by Me Departure Impression Primary Impression: Strain of lumbar paraspinal muscle Qualified Codes: S39.012A - Strain of muscle, fascia and tendon of lower back, initial encounter Disposition: 01 HOME, SELF-CARE Condition: Stable Departure-Patient Inst. Decision time for Depature: 15:00 Referrals: SARA CROFT DO (PCP/Family) Primary Care Physician Patient Instructions: Low Back Pain (DC), Muscle Strain (DC) Add. Discharge Instructions: Alternate heat and ice to your area of discomfort. Use muscle relaxant and pain medication as prescribed. Follow-up with your primary care provider if symptoms are not improving or worsen. Return to the emergency department for new, urgent healthcare needs. All discharge instructions reviewed with patient and/or family. Voiced understanding. Scripts Tramadol HCl (Tramadol HCl) 50 Mg Tablet 50 MG PO Q6H PRN for PAIN, #20 TAB 0 Refills Prov: VIDYA MARISCAL 11/25/22 Cyclobenzaprine HCl (Cyclobenzaprine HCl) 10 Mg Tablet 10 MG PO Q8H PRN for SPASMS, #20 TAB 0 Refills Prov: VIDYA MARISCAL 11/25/22 VIDYA MARISCAL Nov 25, 2022 14:14
--- NOTE | 2022-11-25 15:00 | Diagnostic Imaging Report ---
INDICATION: low back pain TECHNIQUE: AP, Lateral and Spot imaging of the lumbar spine CORRELATION STUDY: None FINDINGS: Mild straightening of normal lumbar lordosis. Lumbar vertebral body heights are maintained. Endplate lipping throughout the lumbar spine. Facet arthropathy L5-S1, L4-L5 and L3-L4 levels. More prominent disc space narrowing L5, S1, L4, L5 levels. There is a prominent vascular calcification abdominal aorta. SI joints appear unremarkable. IMPRESSION: No radiographic evidence for acute bony abnormality of the lumbar spine. Advanced lower lumbar spine degenerative change. Dictated by: Dictated on workstation # [id number]
[2022-11-25] MEDS ORDERED: CYCL10TA25 PO (15:51)
[2022-11-25] MEDS ORDERED: TRM50T PO (15:51)
[2022-11-25 15:54] VITALS: BP 138/87
== END 2022-11-25 15:54 | disposition home or self-care (01) ==
LOC: EDUNIT# 13:12 → ER 13:13
DX: S39.012A Strain of muscle, fascia and tendon of lower back, initial encounter (principal); F17.200 Nicotine dependence, unspecified, uncomplicated; X58.XXXA Exposure to other specified factors, initial encounter
CPT/HCPCS: 72100; 81000

== ENCOUNTER → 2023-08-11 | Outpatient (CLI) | payer BC ==
[~2023-08-11] MED LIST changes: +CATHETER FLUSH 10 ML SYR IVP PRN; +CYCL10TA25 PO; +TRM50T PO
[2023-08-11 08:13] VITALS: BP 131/75
--- NOTE | 2023-08-11 12:40 | Cardiology Stress Test Report ---
Stress Test Report Date of Procedure/Referring: Date of Procedure: Aug 11, 2023 PCP Manjeet Santiago DO Admitting Physician Admitting Physician: Attending Physician: Manjeet Santiago DO Indications: Chest pain Baseline Heart Rate: 71 Baseline Blood Pressure: Blood Pressure Systolic: 131 Blood Pressure Diastolic: 75 Vital Signs Date Time Temp Pulse Resp B/P (MAP) Pulse Ox O2 Delivery O2 Flow Rate FiO2 08/11/23 08:13 75 131/75 (93) Baseline Vital Signs Vital Signs Date Time Temp Pulse Resp B/P (MAP) Pulse Ox O2 Delivery O2 Flow Rate FiO2 08/11/23 08:13 75 131/75 (93) Baseline EKG: Baseline EKG: NSR, RSR prime in V1, minimal ST depressions in diffuse leads Summary: After explaining the procedure and details to the patient, she signed the consent and was brought to the stress nuclear laboratory. Patient exercised on standard Peter protocol, EKG, heart rate and blood pressure were monitored continuously, resting and stress doses of radio tracer were injected, imaging was acquired and reviewed in the short axis, horizontal long axis and vertical long axis views Patient was able to exercise for a total of [ ] minutes on Peter protocol, METs [ ] Maximum heart rate [ ] Maximum blood pressure [ ] Stress EKG, Minimal nondiagnostic changes Recovery EKG, Return to baseline MARINA VAZQUEZ MD Aug 11, 2023 12:40
--- NOTE | 2023-08-11 12:46 | Cardiology Stress Test Report ---
Stress Test Report Date of Procedure/Referring: Date of Procedure: Aug 11, 2023 PCP Manjeet Santiago DO Admitting Physician Admitting Physician: Attending Physician: Manjeet Santiago DO Indications: Chest pain Baseline Heart Rate: 71 Baseline Blood Pressure: Blood Pressure Systolic: 131 Blood Pressure Diastolic: 75 Vital Signs Date Time Temp Pulse Resp B/P (MAP) Pulse Ox O2 Delivery O2 Flow Rate FiO2 08/11/23 08:13 75 131/75 (93) Baseline Vital Signs Vital Signs Date Time Temp Pulse Resp B/P (MAP) Pulse Ox O2 Delivery O2 Flow Rate FiO2 08/11/23 08:13 75 131/75 (93) Baseline EKG: Baseline EKG: NSR, RSR prime in V1, minimal ST depressions and diffusely Summary: After explaining the procedure and details to the patient, she signed the consent and was brought to the stress nuclear laboratory. Patient exercised on standard Peter protocol, EKG, heart rate and blood pressure were monitored continuously, resting and stress doses of radio tracer were injected, imaging was acquired and reviewed in the short axis, horizontal long axis and vertical long axis views Patient was able to exercise for a total of [ ] minutes on Peter protocol, METs [ ] Maximum heart rate [ ] Maximum blood pressure [ ] Stress EKG, Minimal nondiagnostic changes Recovery EKG, Return to baseline TID: 1.08 SSS: 0 SDS: 0 EF: 74 Conclusion: 1. Exercise Myoview performed. Peter protocol. 2. Patient achieved 9.1 METS (average workload). She achieved that 91% of max protected heart rate. Hypertensive response to exercise up to 204/69. 3. Baseline EKG demonstrates normal sinus rhythm, RSR prime in V1, less than [address] depressions in diffuse leads. 4. Stress EKG demonstrates [address] depressions in diffuse leads, concerning for ischemia. 5. Normal left ventricular ejection fraction of 74%. Transischemic dilatation ratio of 1.08 (nonsignificant). 6. No myocardial ischemia is noted by nuclear scanning. 7. Positive stress test study by EKG (although baseline minimal ST depressions may have biased to study). Negative stress test study by imaging. 8. Overall, negative stress test study. No evidence of myocardial ischemia. MAIRNA VAZQUEZ MD Aug 11, 2023 12:46
== END ==
LOC: CARD 06:32
PROVIDERS: ATTEND Internal Medicine
DX: R07.9 Chest pain, unspecified (principal)
CPT/HCPCS: 78452; 93017; A9502

== ENCOUNTER 2023-10-31 07:18 | Emergency (ER) | payer BC ==
[~2023-10-31] VITALS: Ht 162.5 cm; Wt 68.0 kg
[~2023-10-31 07:18] MED LIST changes: -CATHETER FLUSH 10 ML SYR IVP PRN
[2023-10-31] MEDS ORDERED: ONDANSETRON 4 MG ORAL DISSOLVE TABLET SL STA (08:48)
[2023-10-31] MEDS ORDERED: KETOROLAC INJ 30 MG/ML VIAL IM STA (08:48)
[2023-10-31] MEDS ORDERED: HYDROcodone/ACETAMINOPHEN 5 MG/325 MG TABLET PO ONE (09:00)
[2023-10-31 09:24] LABS: BILIRUBIN,URINE NEGATIVE (NEGATIVE); CLARITY,URINE CLEAR; COLOR,URINE YELLOW; GLUCOSE, URINE (UA) NEGATIVE (NEGATIVE); KETONES,URINE NEGATIVE (NEGATIVE); LEUKOCYTE ESTERASE ,URINE NEGATIVE (NEGATIVE); NITRITE,URINE NEGATIVE (NEGATIVE); PH,URINE 6.2 (5-9); PROTEIN,URINE NEGATIVE (NEGATIVE)
[2023-10-31 09:25] LABS: BACTERIA,URINE NEGATIVE /HPF
--- NOTE | 2023-10-31 09:28 | Diagnostic Imaging Report ---
PROCEDURE: CT lumbar spine without contrast. TECHNIQUE: Multiple contiguous axial images were obtained through the lumbar spine without the use of intravenous contrast. Sagittal and coronal reformations were then performed. Auto Exposure Controls were utilized during the CT exam to meet ALARA standards for radiation dose reduction. INDICATION: Low back pain, right hip pain. COMPARISON: No priors. FINDINGS: Incidentally noted are benign fat-containing angiomyolipomas in the left kidney. The largest at its upper pole measures 1 cm without hemorrhage. No opaque urinary tract stone or hydronephrosis. The atherosclerotic aortoiliac vessels are nonaneurysmal. There is fatty infiltration of the partially visualized liver which is likely at least mildly enlarged. There are clips at the gallbladder fossa. No intra or extraperitoneal hemorrhage is visible. The lumbar statures are normal and their alignment anatomic. 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 This results in a chronic severe canal stenosis, greatest at the L5 superior endplate level where there is also moderate to severe bilateral calcified stenoses of the lateral recesses. At L4-L5, there is mild to moderate bony biforaminal stenosis. At the L5-S1 level, moderate to severe left and moderate right bony foraminal stenoses are present. No acute or chronic fracture is found. At the remaining levels, no significant stenosis. No acute appearing abnormality. IMPRESSION: 1. Chronic stenoses at L4-L5 and L5-S1 on a calcified basis. No fracture or malalignment. No acute lumbar pathology. 2. 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 Dictated by: Dictated on workstation # [id number]
--- NOTE | 2023-10-31 09:54 | ED Back Pain ---
General Chief Complaint: Back Problems Stated Complaint: LOWER BACK PAIN Nursing Triage Note: PT TO RM 7 BY WC WITH COMPLAINT OF LOW BACK PAIN. STATES STARTED MONDAY. HAS BEEN TO CHIROPRACTPR WITHOUT RELIEF. Source of Information: Patient Exam Limitations: No Limitations History of Present Illness Date Seen by Provider: Oct 31, 2023 Time Seen by Provider: 08:19 Initial Comments Here with complaint of low back pain that started a few days ago after she was sitting on the floor wrapping presents. She went to the chiropractor on Monday and that did help. She has had chronic low back pain due to degeneration and disc problems especially in the area of L4-L5 and L5-S1. No recent trauma. She does have pain that radiates to the right groin and occasionally down to the right foot. She has had sciatica symptoms before. Denies bowel or bladder incontinence or weakness. States the pain just was worse this morning. She has been using Salonpas with lidocaine patches as well as prescribed naproxen and that has helped some. Denies fever or chills. Location: Lumbar Spine, Paraspinous Muscles Timing/Duration: 3-4 Days, Getting Worse Severity: Moderate Associated Symptoms: muscle spasms; No fever, No weakness, No numbness in legs/feet, No tingling in legs/feet; lower back pain; No loss of bladder control, No loss of bowel control Allergies and Home Medications Allergies Coded Allergies: Aowmamm-GVF-XzL Reductase Inhibitor (Verified Allergy, Unknown, RASH, 12/02/21) Patient Home Medication List Home Medication List Reviewed: Yes Calcium Carbonate (Antacid) 1,000 Mg Tab.chew, 1,000 MG PO, (Reported) Entered as Reported by: ALYSIA ALSTON on 12/18/14 1033 Cyclobenzaprine HCl (Cyclobenzaprine HCl) 10 Mg Tablet, 10 MG PO Q8H PRN for SPASMS Prescribed by: VIDYA MARISCAL on 11/25/22 1551 Dicyclomine HCl (Dicyclomine HCl) 20 Mg Tablet, 20 MG PO Q6H Prescribed by: JOSÉ RENAE on 09/25/21 1705 Hydrocodone/Acetaminophen (Hydrocodone-Acetamin 7.5-325) 1 Each Tablet, 1 EACH PO Q4H PRN for PAIN-BREAKTHROUGH Prescribed by: EDWARD LAUGHLIN on 12/02/21 1053 Lisinopril/Hydrochlorothiazide (Lisinopril-Hctz 20-25 mg Tab) 1 Each Tablet, 1 EACH PO DAILY, (Reported) Entered as Reported by: YEMI GARCES on 11/30/21 105 Metformin HCl (Metformin HCl) 500 Mg Tablet, 500 MG PO DAILY, (Reported) Entered as Reported by: YEMI GARCES on 11/30/21 1057 Metoprolol Succinate (Metoprolol Succinate) 50 Mg Tab.sr.24h, 50 MG PO HS, (Reported) Entered as Reported by: SE PARIS on 04/28/14 1522 Omeprazole (Omeprazole) Unknown Strength Capsule.dr, Unknown Dose PO, (Reported) Entered as Reported by: YEMI GARCES on 11/30/21 105 Tramadol HCl (Tramadol HCl) 50 Mg Tablet, 50 MG PO Q6H PRN for PAIN Prescribed by: VIDYA MARISCAL on 11/25/22 1552 Review of Systems Constitutional: see HPI Respiratory: no symptoms reported Cardiovascular: no symptoms reported Gastrointestinal: see HPI Genitourinary: see HPI Musculoskeletal: back pain, muscle pain, muscle twitching Skin: no symptoms reported Psychiatric/Neurological: See HPI Past Pmfiojj-Efjrpn-Zdtyzm Hx Patient Social History Tobacco Use?: Yes Tobacco type used: Cigarettes Smoking Status: Current Everyday Smoker Use of E-Cig and/or Vaping dev: No Substance use?: No Alcohol Use?: Yes Alcohol Frequency: Couple times a week Pt feels they are or have been: No Immunizations Up To Date First/Initial COVID19 Vaccinat: JANUARY 2021 Second COVID19 Vaccination [place]: FEBRUARY 2021 Third COVID19 Vaccination Date: SEPTEMBER 24, 2021 Seasonal Allergies Seasonal Allergies: Yes Past Medical History Surgeries: Yes (OVARIAN CYST, DISCECTOMY) Appendectomy Respiratory: No Currently Using CPAP: No Currently Using BIPAP: No Cardiac: Yes High Cholesterol, Hypertension Neurological: No Female Reproductive Disorders: Ovarian Cyst Genitourinary: No Gastrointestinal: Yes Gastroesophageal Reflux, Gall Bladder Disease Musculoskeletal: No Chronic Back Pain Endocrine: No Diabetes, Non-Insulin dep HEENT: Yes (GLASSES) Cancer: No Psychosocial: No Integumentary: No Blood Disorders: No Family Medical History Reviewed Nursing Family Hx No Pertinent Family Hx Physical Exam Vital Signs Vital Signs - First Documented 10/31/23 08:10 Temp 37.1 Pulse 77 Resp 18 B/P (MAP) 149/80 (103) Pulse Ox 97 O2 Delivery Room Air Capillary Refill : Less Than 3 Seconds Height, Weight, BMI Height: 5'4" Weight: 150lbs. oz. 68.864487cs; 25.00 BMI Method:Stated General Appearance: WD/WN, Mild Distress (Low back pain but better when not moving) Cardiovascular: Regular Rate, Rhythm, No Murmur Respiratory: Lungs Clear, Normal Breath Sounds Gastrointestinal: No Pulsatile Mass, Non Tender, Soft Back: Other (Tender over the right SI joint with paraspinous muscle spasm noted on the right) Neurologic/Psychiatric: Alert, Oriented x3 Skin: Normal Color, Warm/Dry Progress/Results/Core Measures Results/Orders Lab Results Laboratory Tests Test 10/31/23 09:13 Range/Units Urine Color YELLOW Urine Clarity CLEAR Urine pH 6.2 5-9 Urine Specific [place] 1.015 L 1.016-1.022 Urine Protein NEGATIVE NEGATIVE Urine Glucose (UA) NEGATIVE NEGATIVE Urine Ketones NEGATIVE NEGATIVE Urine Nitrite NEGATIVE NEGATIVE Urine Bilirubin NEGATIVE NEGATIVE Urine Urobilinogen 0.2 < = 1.0 MG/DL Urine Leukocyte Esterase NEGATIVE NEGATIVE Urine RBC (Auto) NEGATIVE NEGATIVE Urine RBC NONE /HPF Urine WBC NONE /HPF Urine Squamous Epithelial Cells NONE /HPF Urine Crystals NONE /LPF Urine Bacteria NEGATIVE /HPF Urine Casts NONE /LPF Urine Mucus NEGATIVE /LPF Urine Culture Indicated NO My Orders Orders - PAPI SCHILLING MD Ua Culture If Indicated (10/31/23 08:40) Ct Lumbar Spine Wo (10/31/23 08:40) Hydrocodone/Apap 5/325 Tablet (Hydrocod (10/31/23 09:00) Ketorolac Injection (Ketorolac Injection (10/31/23 08:48) Ondansetron Oral Dissolve Tab (Ondanset (10/31/23 08:48) Accucheck Stat ONCE (10/31/23 09:36) Medications Given in ED Current Medications Medications Dose Ordered Sig/Edwige Route Start Time Stop Time Status Last Admin Dose Admin Acetaminophen/ Hydrocodone Bitart 1 ea ONCE ONCE PO 10/31/23 09:00 10/31/23 09:01 DC 10/31/23 08:55 1 EA Vital Signs/I&O 10/31/23 08:10 Temp 37.1 Pulse 77 Resp 18 B/P (MAP) 149/80 (103) Pulse Ox 97 O2 Delivery Room Air Blood Pressure Mean: 103 Progress Progress Note : Progress Note Seen and evaluated. We will go ahead and check UA and get CT of the lumbar spine given her history. Toradol 30 mg IM, [place] 5/325 1 tab p.o. and ondansetron 4 mg p.o. ordered. Monitor patient. Differential diagnosis includes Lumbar radiculopathy, lumbar fracture, UTI 0950: I have reviewed CT scan and see no obvious fracture on my interpretation but there is moderate amount of degeneration. Report reviewed and does note ch ronic degeneration. UA reviewed and is nonconcerning. Overall her pain is better. We will initiate outpatient steroid and I will send a copy of the chart to her primary care physician for referral to back surgeon for consideration for procedure for the degeneration. This was discussed with patient and family who agree. Discharged home with return precautions. Patient and family verbalized understanding of instructions and agreement with plan. Departure Impression Primary Impression: Lumbar radiculopathy Disposition: HOME, SELF-CARE Condition: Stable Departure-Patient Inst. Decision time for Depature: 09:55 Referrals: SARA CROFT DO (PCP/Family) Primary Care Physician Patient Instructions: Radiculopathy, Low Back Pain (DC) Add. Discharge Instructions: Continue home medications as previously prescribed. Take the medications as directed. Follow-up with your doctor for discussion for referral to a back surgeon for evaluation of your low back pain. Continue to use the Salonpas with lidocaine or similar to the area of concern per package directions. You may continue your naproxen (Naprosyn) as prescribed. Return for worse pain, weakness, numbness between your legs, difficulty with walking or going to the bathroom or other concerns as needed. All discharge instructions reviewed with patient and/or family. Voiced understanding. Scripts Ondansetron (Ondansetron Odt) 4 Mg Tab.rapdis 4 MG PO Q6H PRN for NAUSEA/VOMITING, #12 TAB 0 Refills Prov: PAPI SCHILLING MD 10/31/23 Hydrocodone/Acetaminophen (Hydrocodone-Acetamin 5-325 mg) 5 Mg-325 Mg Tablet 1 TAB PO Q6H PRN for PAIN-MODERATE (5-7) for 7 Days, #8 TAB 0 Refills Prov: PAPI SCHILLING MD 10/31/23 Copy Copies To 1: SARA CROFT TIMOTHY D MD Oct 31, 2023 09:54
[2023-10-31] MEDS ORDERED: ACHD5005 PO (09:57)
[2023-10-31] MEDS ORDERED: ONDA4TAB11 PO (09:57)
[2023-10-31 10:04] VITALS: BP 138/76
== END 2023-10-31 10:04 | disposition home or self-care (01) ==
LOC: EDUNIT# 07:18 → ER 07:20
DX: M54.16 Radiculopathy, lumbar region (principal); F17.210 Nicotine dependence, cigarettes, uncomplicated
CPT/HCPCS: 72131; 81000; 82947